=== PATIENT | male | born 2000 | race Caucasian/White ===

== ENCOUNTER 2022-08-23 16:47 | Emergency (ER) | payer SELFPAY ==
[2022-08-23 16:58] VITALS: BP 140/92; PULSE 68; RESP 18; TEMP 98.9; BMI 23.8
[2022-08-23] MEDS ORDERED: BACITRACIN 15 GM TUBE TOPICAL OINTMENT ONE (18:38)
[2022-08-23] MEDS ORDERED: BACITRACIN 15 GM TUBE TOPICAL OINTMENT TP ONE (18:38)
== END 2022-08-23 19:12 | disposition home or self-care (01) ==
LOC: JERFT 16:47 → JER 16:47 → JERFT 19:12
PROC: 0HQGXZZ Repair Left Hand Skin, External Approach (ICD-10-PCS; principal; 2022-08-23)
DX: S61.412A Laceration without foreign body of left hand, initial encounter (principal); S61.217A Laceration without foreign body of left little finger without damage to nail, initial encounter; W26.8XXA Contact with other sharp object(s), not elsewhere classified, initial encounter
CPT/HCPCS: 99282-25